=== PATIENT | female | born 1965 | race Caucasian/White ===

== ENCOUNTER 2016-11-10 10:15 | Emergency (ER) | payer SELFPAY ==
[~2016-11-10] VITALS: Ht 165.1 cm; Wt 65.0 kg
[~2016-11-10 10:15] MED LIST: DEPO-MEDROL80 MG/ML IM; FLEXERIL PO; FLEXERIL10 MG PO; LORTAB5 PO; NAPROSYN500 MG PO; NO; TRAMADOL HCL50 MG PO
[2016-11-10] MEDS ORDERED: TRAMADOL HCL50 MG PO (10:34)
[2016-11-10] MEDS ORDERED: MEDDOSEPAK PO (11:05)
[2016-11-10] MEDS ORDERED: BENADRYL 50MG C50 MG PO (11:05)
[2016-11-10] MEDS ORDERED: PEPCID20 MG PO (11:05)
[2016-11-10 11:40] VITALS: BP 151/96
== END 2016-11-10 12:03 | disposition home or self-care (01) | DRG 607 ==
LOC: ED 10:15
DX: L25.9 Unspecified contact dermatitis, unspecified cause (principal)